=== PATIENT | female | born 1970 | race American Indian/Alaskan Native ===

== ENCOUNTER 2019-01-13 04:36 | Emergency (ER) | payer BC, OTHER ==
[2019-01-13] MEDS ORDERED: KETOROLAC 60 MG/2 ML INJ IM STA (07:39)
[2019-01-13] MEDS ORDERED: HYDROcodone/ACETAMINOPHEN 5-325 MG TAB PO STA (07:39)
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
[2019-01-13] MEDS ORDERED: SODIUM CHLORIDE 0.9% 1000 ML 1,000 ML IV ONE (08:37)
[2019-01-13] MEDS ORDERED: SODIUM CHLORIDE 0.9% 1000 ML 1,000 ML ONE (08:40)
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
[2019-01-13 09:31] VITALS: BP 149/83
== END 2019-01-13 10:02 | disposition home or self-care (01) ==
LOC: ED 04:36
DX: S09.90XA Unspecified injury of head, initial encounter (principal); R07.89 Other chest pain; M79.10 Myalgia, unspecified site; Z90.710 Acquired absence of both cervix and uterus; Z87.891 Personal history of nicotine dependence; Z90.49 Acquired absence of other specified parts of digestive tract; V89.2XXA Person injured in unspecified motor-vehicle accident, traffic, initial encounter; Y93.89 Activity, other specified; Y92.410 Unspecified street and highway as the place of occurrence of the external cause; Y99.8 Other external cause status
CPT/HCPCS: 70450; 71260; 74177; 96360; 96372; 99284; J1885; J7030; Q9967